=== PATIENT | female | born 1990 ===

== ENCOUNTER 2021-03-03 05:38 | Day surgery (SDC) | payer OTHER ==
[~2021-03-03 05:38] MED LIST: ESTARYLLA1 EACH PO
== END 2021-03-03 17:40 | disposition home or self-care (01) ==
LOC: CIR.AMB 05:38
PROVIDERS: ATTEND Obstetrics & Gynecology Gynecologic Oncology
DX: D06.0 Carcinoma in situ of endocervix (principal); Z20.822 Contact with and (suspected) exposure to COVID-19